=== PATIENT | female | born 1990 | race Caucasian/White ===

== ENCOUNTER 2018-07-20 17:46 | Inpatient (IN) | payer MEDICAID ==
[~2018-07-20] VITALS: Ht 144.8 cm; Wt 83.7 kg
[~2018-07-20 17:46] MED LIST: PREN1TAB17 PO
[2018-07-20 18:01] VITALS: BP 123/68; PULSE 74; RESP 18; Ht 144.8 cm; Wt 83.7 kg
[2018-07-20] MEDS ORDERED: LACTATED RINGER'S 1,000 ML IV ONE (20:30)
[2018-07-20] MEDS: LACTATED RINGER'S 1,000 ML IV SCH ×2 (21:39→23:11)
[2018-07-20] MEDS ORDERED: ACETAMINOPHEN 325 MG TAB PO PRN (23:00)
--- NOTE | 2018-07-20 23:51 | HP ---
Date/Time of Note Date/Time of Note DATE: 07/20/18 TIME: 23:49 OB - History Hx of Present Free Text/Dictation July 20, 2018 Estimated Due Date: Sep 09, 2018 : 4 Para: 3 Care: Good Care Other Concerns: 19-year-old G4, P3 with IUP at 32 weeks and 5 days presents with complaint of lower abdominal pain and some contractions. She has a history of recurrent UTI. She denies any leaking of fluid or decreased movement. Noted to have 3+ leukocyte esterase as well as 76 white BC and urine analysis consistent with UTI. Patient also noted to have episodes of recurrent variable deceleration with interval category 1 tracing. She was admitted for observation. Patient denies any comp occasions during her course. Past medical history: None Past surgical history: Status post appendectomy allergy history: NKDA Social history: Denies of smoking drinking alcohol or using any drugs Past Family/Social History * Past Medical, Surgical, Family and Obstetric Histories reviewed from chart. OB Admission Exam Vital Signs Vital Signs Vital Signs Date Temp Pulse Resp B/P (MAP) Pulse Ox O2 O2 Flow FiO2 Time Delivery Rate 07/20/18 98.4 74 18 123/68 18:01 (86) Physical Exam HEENT: WNL Lungs: Clear Abdomen: WNL Cervical Dilatation: None Membranes: Intact Heart Rate: 130's Accelerations: Accelerations Present Decelerations: Variable Decelerations Varibility: Moderate Contractions on Admission: >10 Minutes Apart Intensity: Mild Last 72 hours Lab Results CBC & BMP 07/20/18 19:01 OB Assessment/Plan Other Assessment: IUP at 32 weeks and 5 days Suprapubic pain, urine analysis consistent with UTI contractions, resolved after IV hydration. Likely due to UTI and dehydration No evidence of labor. Cervix closed and long. Cervical length 3.2 cm Symptoms improved after IV hydration Due to recurrent episodes of variables patient will be admitted for observation overnight Consider starting antibiotics. She will receive 1 dose of IV antibiotic and will continue with p.o. Expectant management Plan of care discussed with the patient with GISELA JAIN MD July 20, 2018 23:51
[2018-07-21] MEDS: CEFTRIAXONE 1 GM/50 ML (PMX) 50 ML IVPB SCH ×2 (01:08→01:10)
[2018-07-21] MEDS: SOD CHLORIDE 0.9% 1,000 ML IV SCH ×2 (01:08→09:06)
[2018-07-21] MEDS ORDERED: PRENATAL VITAMIN PO SCH (09:00)
--- NOTE | 2018-07-21 23:43 | PD.PPDC ---
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
--- NOTE | 2018-07-21 23:48 | DS ---
Date/Time of Note Date/Time of Note DATE: 07/21/18 TIME: 23:43 Obstetrical Discharge Record Final Diagnosis Final Diagnosis: not delivered Other Final Diagnosis acute cystitis IUP 32w5d polyhydramnios Complications Augmentation: No Induction: No Rupture of Membranes: No Condition on Discharge Physical Assessment Last Vitals: afebrile Voiding: Yes Bowel Movement: Yes Breast: Soft, non-tender Fundus: Other () Abdomen and Incision: CVA neg for tenderness CVL 3.2 Calf Tenderness: No Patient Condition: Stable NOREEN LIND MD July 21, 2018 23:48
== END 2018-07-21 19:35 | disposition home or self-care (01) | DRG 833 ==
LOC: OBT 17:46 → L-D 17:48 → OBT 22:40 → L-D 22:40
PROVIDERS: ADMIT Obstetrics & Gynecology; ATTEND Obstetrics & Gynecology
DX: O23.13 Infections of bladder in pregnancy, third trimester (principal); O40.3XX0 Polyhydramnios, third trimester, not applicable or unspecified; Z3A.32 32 weeks gestation of pregnancy
CPT/HCPCS: 76815; 76817; 81001; 85025; 87086; 96360; 96361; G0463; J0696; J7030; J7120

== ENCOUNTER 2018-07-22 13:08 | Outpatient (CLI) | payer MEDICAID ==
[~2018-07-22] VITALS: Ht 144.8 cm; Wt 83.9 kg
[2018-07-22 13:48] VITALS: BP 117/67; PULSE 71; RESP 18; Ht 144.8 cm; Wt 83.9 kg
--- NOTE | 2018-07-22 15:31 | PN ---
Triage Information Date/Time Reason for visit: H of labor for NST AND BPP a per provir Weeks of Gestation 32+ /Para n/a Diabetes: none Hypertention: none Objective Vital Signs Date Temp Pulse Resp B/P (MAP) Pulse Ox O2 O2 Flow FiO2 Time Delivery Rate 07/22/18 98.2 71 18 117/67 Room Air 13:48 (84) Heart Rate: 140's Contractions: None Disposition: Discharge Assessment/Plan BPP 12/15 IF CXL is WNL she can be discharged with precautions and follow up with her prov ider Questions answered JACKIE BEY M.D. July 22, 2018 15:31
--- NOTE | 2018-07-22 17:35 | TRIAGE ---
OB Triage Datetime Report Generated by CPN: 07/22/2018 17:34 Datetime: 07/22/2018 16:10 Labor Evaluation Frequency: 0 Monitor Mode: External Pattern: Normal: <= 5 Contractions in 10 Minutes Resting Tone Hickman: Relaxed Heart Rate FHR Baseline Rate: 135 Monitor Mode: External US Variability: Moderate 6-25 bpm Accelerations: 10X10 Decelerations: None Category: Category I Pain Assessment Pain Scale: 0 Pain Presence: None/Denies Pain Type: N/A Pain Goal: 3 Pain Relief Measures: Comfort Measures Datetime: 07/22/2018 15:20 Stage of : OB Triage Datetime: 07/22/2018 15:02 Labor Evaluation Frequency: 0 Monitor Mode: External Pattern: Normal: <= 5 Contractions in 10 Minutes Resting Tone Hickman: Relaxed Heart Rate FHR Baseline Rate: 130 Monitor Mode: Internal Scalp Electrode Variability: Moderate 6-25 bpm Accelerations: 10X10 Decelerations: None Category: Category I Pain Assessment Pain Scale: 0 Pain Presence: None/Denies Pain Type: N/A Pain Goal: 3 Pain Relief Measures: Comfort Measures Datetime: 07/22/2018 14:52 Stage of : OB Triage Datetime: 07/22/2018 14:47 Stage of : OB Triage Datetime: 07/22/2018 13:46 Stage of : OB Triage Maternal Assessment Level of Consciousness: Fully Conscious DTR's/Clonus: DTRs 2+; No Clonus Headache: Denies Blurred Vision: No Respiratory Effort: Unlabored; Regular Rhythm; Equal Expansion Breath Sounds, Left: Clear and Equal Breath Sounds, Right: Clear and Equal Nausea/Vomiting: Denies RUQ Epigastric Pain: Denies Lower Extremities Edema: None Degree: None Upper Extremities Edema: None Facial Edema: None Temperature Route: Oral Fall Risk Assessment History of Falling: (0) No Secondary Diagnosis: (0) No Ambulatory Aid: (0) Bedrest/Nurse Assist IV Therapy: (0) No Gait: (0) Normal/Bedrest/Immobile Mental Status: (0) Oriented to Own Ability Fall Score: 0 Fall Risk Score Definition: No Risk: No action required Monitor Mode: External Heart Rate FHR Baseline Rate: 130 Monitor Mode: External US Pain Assessment Pain Scale: 0 Datetime: 07/22/2018 13:00 Time of Arrival: 07/15/2018 13:00 EGA: 31.6 Arrived By: Ambulatory Arrived From: Home Chief Complaint: follow up from last visit due to PTL Movement: Present Contractions: Irregular Rupture of Membranes: Denies Vaginal Bleeding: None Vaginal Discharge: Denies Recent Sexual Intercouse: Denies Abdominal Trauma: Not Applicable Patient Complaints: Other Additional Patient Complaints: was admitted previously for PTL and was discharged home and was told to come back for follow up NST Time Provider Notified: 07/22/2018 13:59 Provider Notified: delshad Initial Plan: efm Datetime: 07/21/2018 19:29 Labor Evaluation Frequency: x1 Monitor Mode: External Duration (sec)2399: 80 Pattern: Normal: <= 5 Contractions in 10 Minutes Heart Rate FHR Baseline Rate: 145 Monitor Mode: External US Variability: Moderate 6-25 bpm Accelerations: 15X15 Decelerations: Variable Category: Category II Datetime: 07/21/2018 18:52 Labor Evaluation Frequency: 0 Monitor Mode: External Heart Rate FHR Baseline Rate: 145 Monitor Mode: External US FHR Baseline Changes: No Baseline Change Variability: Moderate 6-25 bpm Accelerations: 15X15 Decelerations: None Category: Category I Pain Presence: None/Denies Datetime: 07/21/2018 18:02 Labor Evaluation Frequency: 0 Monitor Mode: External Heart Rate FHR Baseline Rate: 145 Monitor Mode: External US FHR Baseline Changes: No Baseline Change Variability: Moderate 6-25 bpm Accelerations: 15X15 Decelerations: None Category: Category I Pain Presence: None/Denies Datetime: 07/21/2018 17:03 Labor Evaluation Frequency: 0 Monitor Mode: External Heart Rate FHR Baseline Rate: 140 FHR Baseline Changes: No Baseline Change Variability: Moderate 6-25 bpm Accelerations: 15X15 Decelerations: None Category: Category I Pain Presence: None/Denies Datetime: 07/21/2018 16:00 Labor Evaluation Frequency: 0 Monitor Mode: External Heart Rate FHR Baseline Rate: 140 Monitor Mode: External US FHR Baseline Changes: No Baseline Change Variability: Moderate 6-25 bpm Accelerations: 15X15 Decelerations: None Category: Category I Pain Presence: None/Denies Pain Type: N/A Datetime: 07/21/2018 15:00 Labor Evaluation Frequency: 0 Monitor Mode: External Heart Rate FHR Baseline Rate: 145 Monitor Mode: External US FHR Baseline Changes: No Baseline Change Variability: Moderate 6-25 bpm Accelerations: 15X15 Decelerations: None Category: Category I Datetime: 07/21/2018 14:00 Labor Evaluation Frequency: 0 Monitor Mode: External Heart Rate FHR Baseline Rate: 130 Monitor Mode: External US FHR Baseline Changes: No Baseline Change Variability: Moderate 6-25 bpm Accelerations: 15X15 Decelerations: None Category: Category I Datetime: 07/21/2018 13:00 Labor Evaluation Frequency: 0 Monitor Mode: External Heart Rate FHR Baseline Rate: 140 Monitor Mode: External US FHR Baseline Changes: No Baseline Change Variability: Moderate 6-25 bpm Accelerations: 15X15 Decelerations: None Category: Category I Datetime: 07/21/2018 12:00 Monitor Mode: External Heart Rate FHR Baseline Rate: 145 Monitor Mode: External US FHR Baseline Changes: No Baseline Change Variability: Moderate 6-25 bpm Accelerations: 15X15 Decelerations: None Category: Category I Datetime: 07/21/2018 11:00 Labor Evaluation Frequency: 0 Monitor Mode: External Heart Rate FHR Baseline Rate: 145 Monitor Mode: External US FHR Baseline Changes: No Baseline Change Variability: Moderate 6-25 bpm Accelerations: 15X15 Decelerations: None Category: Category I Datetime: 07/21/2018 10:00 Labor Evaluation Frequency: 0 Monitor Mode: External Heart Rate FHR Baseline Rate: 140 Monitor Mode: External US FHR Baseline Changes: No Baseline Change Variability: Moderate 6-25 bpm Accelerations: 15X15 Decelerations: None Category: Category I Datetime: 07/21/2018 09:00 Labor Evaluation Frequency: irregular X2 Monitor Mode: External Duration (sec)2399: 40-50 Quality: Mild Pattern: Normal: <= 5 Contractions in 10 Minutes Resting Tone Hickman: Relaxed Heart Rate FHR Baseline Rate: 135 Monitor Mode: External US FHR Baseline Changes: No Baseline Change Variability: Moderate 6-25 bpm Accelerations: 15X15 Decelerations: None Category: Category I Datetime: 07/21/2018 08:00 Assessment Type: Admission Assessment Maternal Assessment Level of Consciousness: Fully Conscious DTR's/Clonus: DTRs 2+; No Clonus Headache: Denies Blurred Vision: No Respiratory Effort: Unlabored; Regular Rhythm; Equal Expansion Breath Sounds, Left: Clear and Equal Breath Sounds, Right: Clear and Equal Nausea/Vomiting: Denies RUQ Epigastric Pain: Denies Lower Extremities Edema: None Upper Extremities Edema: None Facial Edema: None Fall Risk Assessment History of Falling: (0) No Secondary Diagnosis: (0) No Ambulatory Aid: (0) Bedrest/Nurse Assist IV Therapy: (20) Yes Gait: (0) Normal/Bedrest/Immobile Mental Status: (0) Oriented to Own Ability Fall Score: 20 Fall Risk Score Definition: No Risk: No action required Labor Evaluation Frequency: IRREGULAR X3 Monitor Mode: External Duration (sec)2399: 50-60 Quality: Mild Pattern: Normal: <= 5 Contractions in 10 Minutes Resting Tone Hickman: Relaxed Contraction Comments: PT STATES SHE DOES NOT FEEL UC PAIN Heart Rate FHR Baseline Rate: 145 Monitor Mode: External US FHR Baseline Changes: No Baseline Change Variability: Moderate 6-25 bpm Accelerations: 10X10 Decelerations: None Category: Category I Comments: PT STATES SHE FEELS POSITIVE MOVEMENT. Datetime: 07/21/2018 07:20 Stage of : Antepartum Datetime: 07/21/2018 07:00 Stage of : Antepartum Labor Evaluation Frequency: Irregular Monitor Mode: External Duration (sec)2399: 40-70 Quality: Mild Pattern: Normal: <= 5 Contractions in 10 Minutes Resting Tone Hickman: Relaxed Heart Rate FHR Baseline Rate: 150 Monitor Mode: External US Variability: Moderate 6-25 bpm Accelerations: 15X15 Decelerations: None Datetime: 07/21/2018 06:43 Stage of : Antepartum Pain Assessment Pain Scale: 0 Pain Presence: None/Denies Pain Type: N/A Datetime: 07/21/2018 06:00 Stage of : Antepartum Labor Evaluation Frequency: Irregular Monitor Mode: External Duration (sec)2399: 40-60 Quality: Mild Pattern: Normal: <= 5 Contractions in 10 Minutes Resting Tone Hickman: Relaxed Heart Rate FHR Baseline Rate: 140 Monitor Mode: External US FHR Baseline Changes: No Baseline Change Variability: Moderate 6-25 bpm Accelerations: 15X15 Decelerations: None Datetime: 07/21/2018 05:21 Stage of : Antepartum Datetime: 07/21/2018 05:00 Stage of : Antepartum Labor Evaluation Frequency: Irregular Monitor Mode: External Duration (sec)2399: 40-70 Quality: Mild Pattern: Normal: <= 5 Contractions in 10 Minutes Resting Tone Hickman: Relaxed Heart Rate FHR Baseline Rate: 140 Monitor Mode: External US Variability: Moderate 6-25 bpm Accelerations: 15X15 Decelerations: None Datetime: 07/21/2018 04:18 Stage of : Antepartum Assessment Type: Admission Assessment Vaginal Bleeding: None Maternal Assessment Level of Consciousness: Fully Conscious DTR's/Clonus: DTRs 2+; No Clonus Headache: Denies Blurred Vision: No Respiratory Effort: Unlabored; Regular Rhythm; Equal Expansion Breath Sounds, Left: Clear and Equal Breath Sounds, Right: Clear and Equal RUQ Epigastric Pain: Denies Lower Extremities Edema: Bilateral Lower Extremities Degree: 1+ (Annotations: feet only) Upper Extremities Edema: None Degree: None Facial Edema: None Temperature Route: Oral Fall Risk Assessment History of Falling: (0) No Secondary Diagnosis: (0) No Ambulatory Aid: (0) Bedrest/Nurse Assist IV Therapy: (0) No Gait: (0) Normal/Bedrest/Immobile Mental Status: (0) Oriented to Own Ability Fall Score: 0 Fall Risk Score Definition: No Risk: No action required Pain Assessment Pain Scale: 0 Pain Presence: None/Denies Pain Type: N/A Membrane Status: Intact Datetime: 07/21/2018 04:00 Stage of : Antepartum Labor Evaluation Frequency: Irregular Monitor Mode: External Duration (sec)2399: 40-50 Quality: Mild Pattern: Normal: <= 5 Contractions in 10 Minutes Resting Tone Hickman: Relaxed Heart Rate FHR Baseline Rate: 135 Monitor Mode: External US FHR Baseline Changes: No Baseline Change Variability: Moderate 6-25 bpm Accelerations: 15X15 Decelerations: None Datetime: 07/21/2018 03:00 Stage of : Antepartum Labor Evaluation Frequency: 2.5-9 Monitor Mode: External Duration (sec)2399: 40-100 Quality: Mild Pattern: Normal: <= 5 Contractions in 10 Minutes Resting Tone Hickman: Relaxed Heart Rate FHR Baseline Rate: 135 Monitor Mode: External US FHR Baseline Changes: No Baseline Change Variability: Moderate 6-25 bpm Accelerations: 15X15 Decelerations: Variable Category: Category II Datetime: 07/21/2018 02:57 Stage of : Antepartum Datetime: 07/21/2018 02:00 Stage of : Antepartum Labor Evaluation Frequency: 2-7 Monitor Mode: External Duration (sec)2399: 40-80 Quality: Mild Pattern: Normal: <= 5 Contractions in 10 Minutes Resting Tone Hickman: Relaxed Heart Rate FHR Baseline Rate: 135 Monitor Mode: External US FHR Baseline Changes: No Baseline Change Variability: Moderate 6-25 bpm Accelerations: 15X15 Decelerations: None Category: Category I Datetime: 07/21/2018 01:10 Stage of : Antepartum Datetime: 07/21/2018 01:00 Stage of : Antepartum Labor Evaluation Frequency: Irregular Monitor Mode: External Duration (sec)2399: 40-70 Quality: Mild Pattern: Normal: <= 5 Contractions in 10 Minutes Resting Tone Hickman: Relaxed Heart Rate FHR Baseline Rate: 135 Monitor Mode: External US FHR Baseline Changes: No Baseline Change Variability: Moderate 6-25 bpm Accelerations: 15X15 Decelerations: None Category: Category I Datetime: 07/21/2018 00:00 Stage of : Antepartum Labor Evaluation Frequency: 2.5-6 Monitor Mode: External Duration (sec)2399: 40-80 Quality: Mild Pattern: Normal: <= 5 Contractions in 10 Minutes Resting Tone Hickman: Relaxed Heart Rate FHR Baseline Rate: 135 Monitor Mode: External US Variability: Moderate 6-25 bpm Accelerations: 15X15 Decelerations: None Category: Category I Datetime: 07/20/2018 23:43 Stage of : Antepartum Temperature Route: Oral Pain Assessment Pain Scale: 0 Pain Presence: None/Denies Pain Type: N/A Pain Assessment Comments: Pt denies any pain or cramping at this time Datetime: 07/20/2018 23:41 Stage of : Antepartum Datetime: 07/20/2018 23:30 Stage of : Antepartum Datetime: 07/20/2018 23:00 Labor Evaluation Frequency: 3-4 Monitor Mode: External Duration (sec)2399: 60-80 Quality: Mild Pattern: Normal: <= 5 Contractions in 10 Minutes Resting Tone Hickman: Relaxed Heart Rate FHR Baseline Rate: 140 Monitor Mode: External US Variability: Moderate 6-25 bpm Accelerations: 15X15 Decelerations: None Category: Category I Datetime: 07/20/2018 22:17 Stage of : OB Triage Labor Evaluation Frequency: 2-10 Monitor Mode: External Duration (sec)2399: 40-60 Quality: Mild Pattern: Normal: <= 5 Contractions in 10 Minutes Resting Tone Hickman: Relaxed Heart Rate FHR Baseline Rate: 135 Monitor Mode: External US Variability: Moderate 6-25 bpm Accelerations: 15X15 Decelerations: None Category: Category I Datetime: 07/20/2018 21:30 Vaginal Exam Dilatation (cms): 0.0 Effacement (%): 0 Station: -3 Exam By: bP FONTAINEVIV Cervix, Consistency: Firm Cervix, Position: Posterior Datetime: 07/20/2018 21:16 Stage of : OB Triage Labor Evaluation Frequency: 2-4 Monitor Mode: External Duration (sec)2399: 40-80 Quality: Mild Pattern: Normal: <= 5 Contractions in 10 Minutes Resting Tone Hickman: Relaxed Heart Rate FHR Baseline Rate: 145 Monitor Mode: External US Variability: Moderate 6-25 bpm Accelerations: 15X15 Decelerations: None Category: Category I Datetime: 07/20/2018 20:30 Stage of : OB Triage Labor Evaluation Frequency: 2-3 Monitor Mode: External Duration (sec)2399: 40-70 Quality: Mild Pattern: Normal: <= 5 Contractions in 10 Minutes Resting Tone Hickman: Relaxed Heart Rate FHR Baseline Rate: 145 Monitor Mode: External US Variability: Moderate 6-25 bpm Accelerations: 15X15 Decelerations: None Category: Category I Datetime: 07/20/2018 19:30 Stage of : OB Triage Labor Evaluation Frequency: 2-4 Monitor Mode: External Duration (sec)2399: 40-60 Quality: Mild Pattern: Normal: <= 5 Contractions in 10 Minutes Resting Tone Hickman: Relaxed Heart Rate FHR Baseline Rate: 145 Monitor Mode: External US Variability: Moderate 6-25 bpm Accelerations: 15X15 Decelerations: None Category: Category I Datetime: 07/20/2018 18:30 Stage of : OB Triage Datetime: 07/20/2018 17:52 Stage of : OB Triage Assessment Type: Triage Maternal Assessment Level of Consciousness: Fully Conscious DTR's/Clonus: DTRs 2+; No Clonus Headache: Denies Blurred Vision: No Respiratory Effort: Unlabored; Regular Rhythm; Equal Expansion Breath Sounds, Left: Clear and Equal Breath Sounds, Right: Clear and Equal Nausea/Vomiting: Denies RUQ Epigastric Pain: Denies Facial Edema: None Temperature Route: Axillary Fall Risk Assessment History of Falling: (0) No Secondary Diagnosis: (0) No Ambulatory Aid: (0) Bedrest/Nurse Assist IV Therapy: (0) No Gait: (0) Normal/Bedrest/Immobile Mental Status: (0) Oriented to Own Ability Fall Score: 0 Fall Risk Score Definition: No Risk: No action required Labor Evaluation Frequency: 0 Monitor Mode: External Pattern: Normal: <= 5 Contractions in 10 Minutes Resting Tone Hickman: Relaxed Heart Rate FHR Baseline Rate: 145 Monitor Mode: External US Variability: Moderate 6-25 bpm Accelerations: 10X10 Decelerations: None Category: Category I Pain Assessment Pain Scale: 8 Pain Presence: Constant Pain Type: Cramping Pain Location: Perineum Pain Goal: 3 Pain Relief Measures: Comfort Measures Datetime: 07/20/2018 17:51 EGA: 32.4 Arrived By: Ambulatory Arrived From: Home Datetime: 07/20/2018 17:50 Time of Arrival: 07/20/2018 17:30 Arrived By: Ambulatory Arrived From: Home Chief Complaint: C/O CONSTANT PERINEAL PAIN THAT STARTED AT APPROX 4PM, DENIES BLEEDING OR LEAKING Movement: Present Contractions: Denies/Absent Rupture of Membranes: Denies Vaginal Bleeding: None Vaginal Discharge: Denies Recent Sexual Intercouse: Denies Abdominal Trauma: Not Applicable Patient Complaints: Cramping Initial Plan: MONITOR
== END 2018-07-22 16:20 | disposition home or self-care (01) ==
LOC: OBT 13:08 → L-D 13:09 → OBT 16:20
PROVIDERS: ATTEND Obstetrics & Gynecology
DX: O60.03 Preterm labor without delivery, third trimester (principal); Z3A.32 32 weeks gestation of pregnancy
CPT/HCPCS: 76817; 76818; Z7500; G0463

== ENCOUNTER 2018-08-23 09:37 | Inpatient (IN) | payer MEDICAID ==
[~2018-08-23] VITALS: Ht 144.8 cm; Wt 83.9 kg
--- NOTE | 2018-08-23 10:04 | TRIAGE ---
OB Triage Datetime Report Generated by CPN: 08/23/2018 10:04 Datetime: 08/23/2018 09:43 Vaginal Exam Dilatation (cms): 4.0 Effacement (%): 80 Station: -2 Vaginal Bleeding: None Cervix, Consistency: Soft Cervix, Position: Midposition Presentation 'A': Cephalic Datetime: 08/23/2018 09:34 Time of Arrival: 08/23/2018 09:34 EGA: 37.3 Arrived By: Ambulatory Arrived From: Home Chief Complaint: PT CAME IN C/O UC'S SINCE 0100 Movement: Present Contractions: Regular Time Contractions Began: 08/23/2018 01:00 Contractions: 5 M Rupture of Membranes: Denies Vaginal Discharge: Denies Recent Sexual Intercouse: Denies Abdominal Trauma: Not Applicable Additional Patient Complaints: NONE Time Provider Notified: 08/23/2018 09:40 Provider Notified: HADADIAN Initial Plan: MONITOR AND VE Datetime: 07/22/2018 13:46 Fall Risk Assessment Fall Score: 0 Fall Risk Score Definition: No Risk: No action required Datetime: 07/22/2018 13:00 EGA: 31.6 Datetime: 07/21/2018 08:00 Fall Risk Assessment Fall Score: 20 Fall Risk Score Definition: No Risk: No action required Datetime: 07/21/2018 04:18 Fall Risk Assessment Fall Score: 0 Fall Risk Score Definition: No Risk: No action required Datetime: 07/20/2018 17:52 Fall Risk Assessment Fall Score: 0 Fall Risk Score Definition: No Risk: No action required Datetime: 07/20/2018 17:51 EGA: 32.4
[2018-08-23 10:27] VITALS: Ht 144.8 cm; Wt 83.9 kg
[2018-08-23] MEDS ORDERED: LIDOCAINE 1% (MPF) 30 ML INJ INJ PRN (10:30)
[2018-08-23] MEDS ORDERED: OXYTOCIN 30 UNITS/LR 500 ML IV SCH ×2 (10:30)
[2018-08-23] MEDS ORDERED: OXYTOCIN 30 UNITS/LR 500 ML IV PRN ×2 (10:30→23:30)
[2018-08-23] MEDS ORDERED: BUTORPHANOL 2 MG INJ IV PRN (10:30)
[2018-08-23] MEDS ORDERED: MISOPROSTOL 200 MCG TAB PR PRN ×2 (10:30→23:30)
[2018-08-23] MEDS ORDERED: CARBOPROST 250 MCG INJ IM PRN ×2 (10:30→23:30)
[2018-08-23] MEDS ORDERED: IBUPROFEN 600 MG TAB PO PRN (10:30)
[2018-08-23] MEDS ORDERED: METHYLERGONOVINE 0.2 MG INJ IM PRN ×2 (10:30→23:30)
[2018-08-23] MEDS: LACTATED RINGER'S 1,000 ML IV SCH ×3 (11:21→17:21)
--- NOTE | 2018-08-23 15:23 | PREAC ---
Date/Time of Note Date/Time of Note DATE: 08/23/18 TIME: 15:21 Anesthesia Eval and Record Evaluation Time Pre-Procedure Interview DATE: 08/23/18 TIME: 15:21 Age 27 Sex female NPO: 8 hrs Preoperative diagnosis intrauterine Planned procedure labor epidural Past Medical History Past Medical History: Includes GI: Obesity : : (4), Para: (3), Gestational age: (37+) Surgery & Anesthesia Issues No known issue Meds Anticoagulation: No Beta Alfonso within 24 hr: No Reason Beta Alfonso not given: Pt. not on B-Alfonso Reported Medications Vit-Iron Fumarate-FA ( Tablet) 1 Each Tablet, 1 EACH PO DAILY 05/17/13 Current Medications Lactated Ringer's 1,000 ml @ 125 mls/hr Q8H IV Last administered on 08/23/18at 15:10; Admin Dose 125 MLS/HR; Start 08/23/18 at 10:22 Butorphanol Tartrate (Stadol) 2 mg Q2H PRN IV .PAIN SCALE 6-10; Start 08/23/18 at 10:30 Lidocaine (Xylocaine 1% (Mpf)) 30 ml ONCE PRN INJ .EPISIOTOMY; Start 08/23/18 at 10:30 Oxytocin/Lactated Ringer's 500 ml @ 500 mls/hr ONCE POST IV ; Start 08/23/18 at 10:30 Oxytocin/Lactated Ringer's 500 ml @ 125 mls/hr POST IV ; Start 08/23/18 at 10:30 Ibuprofen (Motrin) 600 mg ONCE PRN PO .PAIN 1-5; Start 08/23/18 at 10:30 Oxytocin/Lactated Ringer's 500 ml @ 0 mls/hr ONCE PRN IV .VAGINAL BLEEDING; Start 08/23/18 at 10:30 Methylergonovine Maleate (Methergine) 0.2 mg ONCE PRN IM .VAGINAL BLEEDING; Start 08/23/18 at 10:30 Carboprost Tromethamine (Hemabate) 250 mcg ONCE PRN IM .VAGINAL BLEEDING; Start 08/23/18 at 10:30 Misoprostol (Cytotec) 1,000 mcg ONCE PRN AR .VAGINAL BLEEDING; Start 08/23/18 at 10:30 Meds reviewed: Yes Allergies Coded Allergies: No Known Allergy (Unverified , 07/20/18) Allergies Reviewed: Yes Labs/Studies Labs Reviewed: Reviewed by anesthesiologist Result Diagram: 08/23/18 1105 Laboratory Tests 08/23/18 11:05 Blood Bank Test 08/23/18 11:05 Antibody Screen NEGATIVE Blood Type O POSITIVE Rh Immune Globulin Candidate NO test: N/A Pre-procedure Exam Airway: Adequate mouth opening, Adequate thyromental dist Mallampati: Mallampati II Teeth: Normal Lung: Normal Heart: Normal ASA Physical Status ASA physical status: 2 Emergency: None Planned Anesthetic Neuraxial: Epidural Planned Pain Management Epidural Pre-operative Attestations Prior to commencing anesthesia and surgery, the patient was re-evaluated, there was verification of: *The patient's identity *The results of appropriate recent lab work and preoperative vital signs *The above evaluation not changing prior to induction *Anesthetic plan, risk benefits, alternative and complications discussed with patient/family; questions answered; patient/family understands, accepts and wishes to proceed. SOBIA DECKER MD Aug 23, 2018 15:23
[2018-08-23] MEDS ORDERED: NALOXONE (0.4 MG/ML) INJ IV PRN (15:30)
[2018-08-23] MEDS ORDERED: FENTAnyl 2MCG/ML-ROPIV 0.2% 100 ML BAG EPI SCH (15:30)
[2018-08-23] MEDS ORDERED: DIPHENHYDRAMINE 50 MG INJ IV PRN ×2 (15:30→23:30)
[2018-08-23] MEDS ORDERED: ONDANSETRON 4 MG INJ IV PRN ×2 (15:30→23:30)
--- NOTE | 2018-08-23 16:01 | PAC ---
Date/Time of Note Date/Time of Note DATE: 08/23/18 TIME: 16:00 Post-Anesthesia Notes Post-Anesthesia Note Activity: WNL Respiratory function: WNL Cardiovascular function: WNL Mental status: Baseline Pain reasonably controlled: Yes Hydration appropriate: Yes Nausea/Vomiting absent: Yes Comments BP: 121/62 HR: 78 RR: 16 T: 98 SaO2: 99% SOBIA DECKER MD Aug 23, 2018 16:01
[2018-08-23 21:30] VITALS: BP 125/69; PULSE 71; RESP 19
[2018-08-23 22:30] VITALS: BP 124/72; PULSE 75; RESP 18
--- NOTE | 2018-08-23 22:59 | HP ---
Date/Time of Note Date/Time of Note DATE: 08/23/18 TIME: 22:56 OB - History Hx of Present Free Text/Dictation 27 years old 4 para 3-0-0-3 with single intrauterine at 37 weeks and 3 days with a ANDRES of 09/10/2018 complaining of uterine contractions. She states good movement. She denies nausea, vomiting, shortness of breath, chest pain, headache, visual changes, vaginal bleeding or LOF. Chief Complaint: Uterine contractions Estimated Due Date: Sep 10, 2018 : 4 Para: 3 Spontaneous : 0 Therapeutic : 0 Care: Good Care Ultrasounds: Normal mid trimester US Obstetrical Complications: None Medical Complications: Musculoskeletal Past Family/Social History * Past Medical, Surgical, Family and Obstetric Histories reviewed from chart. Blood Type: O+ Rubella: immune RPR/VDRL: Negative GBS Status: Negative HBsAG: Negative OB Admission Exam Vital Signs Vital Signs Blood pressure 118/67, pulse rate 66/minutes, respiratory rate 16/minutes, temperature 98.6 Physical Exam HEENT: WNL Heart: Rhythm Normal Lungs: Clear Abdomen: WNL Extremities: Normal Reflexes: Normal Cervical Dilatation: 4cm Effacement: 75% Station: -3 Membranes: Intact Heart Rate: 130's Accelerations: Accelerations Present Decelerations: No Decelerations Varibility: Moderate Contractions on Admission: < 5 Minutes Apart Intensity: Moderate Last 72 hours Lab Results CBC & BMP 08/23/18 11:05 OB Assessment/Plan Other plan: 27 years old 4 para 3-0-0-3 with single intrauterine at 37 weeks and 3 days in labor -FHR: No sign of metabolic acidosis- Category I -Continuous EFM, toco -CBC, blood type and screen -Analgesia options with R/B/A discussed in detail with patient -Epidural per patient request -Please see the orders -O+/Rubella: Immune -GBS: Negative Admission, procedures, expectations, risks and possible complications have been discussed in detail with the patient. Risk of vaginal delivery including but not limited to bleeding, infection, cervical laceration, placental retention, injury to fetus, blood transfusion, blood transfusion related infection, risk of anesthesia, adhesion, cervical laceration, episiotomy/laceration, possible delivery with risk of bleeding, infection, injury to other organs (bowel, bladder, ureter, vessels, nerves), injury to fetus, blood transfusion, blood transfusion related infection, risk of anesthesia, scar and hernia formation, needs for future , removal of uterus or any other indicated surgery discussed with the patient. She expressed understanding and repeats the risks. All of her questions were answered. She signed the informed consent. PHYSICIAN'S VERIFICATION OF INFORMED CONSENT The patient was counseled regarding the procedure, its indications, risks, potential complications and alternatives and any questions were answered. Consent was obtained. PLANNED PROCEDURE/TREATMENT: Vaginal delivery, episiotomy, repair of laceration possible delivery STANLEY TONG Aug 23, 2018 22:59
--- NOTE | 2018-08-23 23:03 | LDN ---
Date/Time of Note Date/Time of Note DATE: 08/23/18 TIME: 23:00 Delivery Summary 27 years old 4 para 3-0-0-3 with single intrauterine at 37 weeks and 3 days delivered a viable male over first-degree laceration. Nose and mouth suction. There was nuchal cord x1 which reduced. Rest of body delivered. Cord clamped and cut after stopping pulsation. Baby given to the nurse. Placenta delivered spontaneously with three-vessel cord. Laceration repaired with 3-0 chromic with SH needle. Patient tolerated procedure well. Time of delivery 20:30 Weight 3195 g - 7pound and 1 ounces Height 19 inches 8 at 1 minutes and 9 at 5 minutes EBL 150 mL Weeks of Gestation 37 weeks and 3 days Placenta Delivered: Spontaneously Episiotomy: No Anesthesia type: Epidural Estimated blood loss: 150 Sponge & Needle done & correct: Yes All needle counts correct: Yes Any foreign bodies felt in the: No Infant Delivery Information Sex Sex: male Apgars 1 Minute: 8 5 Minute: 9 10 Minute: 10 Suctioning Nose & mouth suctioned at eloise: Yes Umbilical Cord Umbilical cord with: 3 Vessels Cord presentations: nuchal cord Nuchal cord present X: 1 Cord Blood was obtained: Yes Mother & Baby Disposition Disposition Mom & Baby to Maternity; Good: Yes STANLEY TONG Aug 23, 2018 23:03
[2018-08-23] MEDS ORDERED: DEXTROSE 5%-LR 1,000 ML IV SCH (23:06)
[2018-08-23] MEDS ORDERED: LANOLIN HPA 1 PKT TOP PRN (23:30)
[2018-08-23] MEDS ORDERED: WITCH HAZEL/GLYCERIN PAD PR PRN (23:30)
[2018-08-23] MEDS ORDERED: SENNA/DOCUSATE NA (8.6MG/50MG) TAB PO PRN (23:30)
[2018-08-23] MEDS ORDERED: BENZOCAINE 20% 56 ML SPRAY TOP PRN (23:30)
[2018-08-23] MEDS ORDERED: ACETAMINOPHEN 325 MG TAB PO PRN (23:30)
[2018-08-23] MEDS ORDERED: OXYCODONE/ASPIRIN (4.88/325) TAB PO PRN (23:30)
[2018-08-23] MEDS ORDERED: MAGNESIUM HYDROXIDE 30ML CUP PO PRN (23:30)
[2018-08-23] MEDS ORDERED: ZOLPIDEM 5 MG TAB PO PRN (23:30)
[2018-08-23] MEDS ORDERED: DIBUCAINE 1% 30 GM OINT TOP PRN (23:30)
[2018-08-24] VITALS: BP 126/68; PULSE 78; RESP 19
[2018-08-24] MEDS: IBUPROFEN 600 MG TAB PO SCH ×5 (00:25→23:24)
[2018-08-24] MEDS: LACTATED RINGER'S 1,000 ML IV* SCH ×2 (01:20→15:06)
[2018-08-24 02:31] VITALS: BP 124/72; PULSE 75; RESP 18
[2018-08-24 04:00] VITALS: BP 122/75; PULSE 73; RESP 18
[2018-08-24 08:00] VITALS: BP 118/57; PULSE 74; RESP 18
--- NOTE | 2018-08-24 15:53 | PN ---
Date/Time of Note Date/Time of Note DATE: 08/24/18 TIME: 15:51 OB Subjective Subjective Subjective PPD# 1 Patient is doing well. She denies nausea, vomiting, shortness of breath, chest pain, headache. She has been ambulating without difficulty, tolerating regular diet. Pain is well controlled on current medications OB Objective Objective Objective VS - Last 72 Hours, by Label Date Temp Pulse Resp B/P (MAP) Pulse Ox O2 O2 Flow FiO2 Time Delivery Rate 08/24/18 98.6 74 18 118/57 Room Air 08:00 (77) 08/24/18 98.4 73 18 122/75 Room Air 04:00 (91) 08/24/18 98.6 78 19 126/68 Room Air 00:00 (87) 08/23/18 98.7 75 18 124/72 Room Air 22:30 (89) 08/23/18 98.6 71 19 125/69 Room Air 21:30 (87) General: AAO X 3, comfortable, NAD, appropriate mood and affect. ABD: +BS. Soft, non-tender. Uterus 2 cm below umbilicus Flank: No CVA tenderness (B/L) LE: Mild edema. No clubbing, cyanosis, thigh or calf tenderness (B/L). Homans 'sign is negative Laboratory Tests Test 08/23/18 11:05 08/24/18 07:16 08/24/18 08:38 White Blood Count 9.5 10^3/ul 9.7 10^3/ul Red Blood Count 4.19 10^6/ul 3.59 10^6/ul Hemoglobin 12.4 g/dl 10.6 g/dl Hematocrit 38.0 % 32.1 % Mean Corpuscular Volume 90.7 fl 89.4 fl Mean Corpuscular 29.6 pg 29.5 pg Hemoglobin Mean Corpuscular 32.6 g/dl 33.0 g/dl Hemoglobin Concent Red Cell Distribution 13.3 % 13.3 % Width Platelet Count 272 10^3/UL 211 10^3/UL Mean Platelet Volume 11.5 fl 10.9 fl Immature Granulocytes % 0.400 % 0.500 % Neutrophils % 70.3 % 77.6 % Lymphocytes % 22.9 % 14.7 % Monocytes % 5.7 % 6.5 % Eosinophils % 0.4 % 0.4 % Basophils % 0.3 % 0.3 % Nucleated Red Blood Cells 0.0 /100WBC 0.0 /100WBC % Immature Granulocytes # 0.040 10^3/ul 0.050 10^3/ul Neutrophils # 6.6 10^3/ul 7.6 10^3/ul Lymphocytes # 2.2 10^3/ul 1.4 10^3/ul Monocytes # 0.5 10^3/ul 0.6 10^3/ul Eosinophils # 0.0 10^3/ul 0.0 10^3/ul Basophils # 0.0 10^3/ul 0.0 10^3/ul Nucleated Red Blood Cells 0.0 10^3/ul 0.0 10^3/ul # Prothrombin Time 12.0 Sec Prothrombin Time Ratio 0.9 INR International 0.88 Normalized Ratio Activated 27.1 Sec Partial Thromboplast Time Rapid Plasma Reagin NONREACTIVE Hepatitis B Surface NEGATIVE Antigen Lab Scanned Report REFERENCE LAB [id number] OB Assessment/Plan Other plan: 27 years old -0-0-4 s/p normal vaginal delivery at 37 weeks and 3 days. PPD#1 - AF, VSS - Baby is doing well, at bed side. She is bonding well - Contraception methods with R/B/A/FR discussed - Continue care - Discharge home tomorrow - Rx and instruction given - Follow up in 2 and 6 weeks at clinic STANLEY TONG Aug 24, 2018 15:53
--- NOTE | 2018-08-24 15:54 | DS ---
Date/Time of Note Date/Time of Note DATE: 08/24/18 TIME: 15:53 Obstetrical Discharge Record Final Diagnosis Final Diagnosis: Term delivered Other Final Diagnosis 27 years old -0-0-4 s/p normal vaginal delivery at 37 weeks and 3 days. PPD#1. course was unremarkable. She is ambulating and tolerating regular diet. She is voiding without difficulty. Pain is controlled on current medication - AF, VSS - Baby is doing well, at bed side. She is bonding well - Contraception methods with R/B/A/FR discussed - Continue care - Discharge home tomorrow - Rx and instruction given - Follow up in 2 and 6 weeks at clinic Vaginal Delivery Obstetrical Delivery: Spontaneous Condition on Discharge Physical Assessment Last Vitals: Vital Signs Date Temp Pulse Resp B/P (MAP) Pulse Ox O2 O2 Flow FiO2 Time Delivery Rate 08/24/18 98.6 74 18 118/57 Room Air 08:00 (77) Voiding: Yes Bowel Movement: Yes Breast: Soft, non-tender Fundus: Firm Calf Tenderness: No Patient Condition: Stable STANLEY TONG Aug 24, 2018 15:54
[2018-08-24 16:42] VITALS: BP 135/76; PULSE 74; RESP 18
[2018-08-24 19:40] VITALS: BP 132/68; PULSE 78; RESP 19
[2018-08-25 04:00] VITALS: BP 129/78; PULSE 66; RESP 20
[2018-08-25] MEDS: IBUPROFEN 600 MG TAB PO SCH ×2 (05:32→12:00)
[2018-08-25 08:00] VITALS: BP 126/78; PULSE 67; RESP 18
[2018-08-25] MEDS ORDERED: DIPHTH/TET/ACEL PERTUSS (ADULT) 0.5 ML VIAL IM* ONE (09:00)
[2018-08-25] MEDS ORDERED: MEASLES,MUMPS,RUBELLA VACCINE INJ SC* ONE (09:00)
--- NOTE | 2018-08-26 16:05 | DELSUM ---
Delivery Summary A-C Datetime Report Generated by CPN: 08/26/2018 16:04 DELIVERY PERSONNEL [employer] Department Chair: Knight, Ivanna MATERNAL INFORMATION Delivery Anesthesia: Epidural Medications in Delivery: PITOCIN Delivery QBL (ml): 150 Placenta Cultured: No Maternal Complications: None LABOR SUMMARY EDC: 09/10/2018 00:00 No. Babies in Womb: 1 Attempted: No Labor Anesthesia: Epidural LABOR INFORMATION Oxytocin: N/A Group B Beta Strep: Negative Steroids Given: None Reason Steroids Not Administered: Not Applicable MEMBRANES Membranes Rupture Method: Spontaneous Rupture of Membranes: 08/23/2018 19:37 Length of Rupture (hr): 0.88 Amniotic Fluid Color: Clear Amniotic Fluid Amount: Moderate Amniotic Fluid Odor: None STAGES OF LABOR Stage 3 hr: 0 Stage 3 min: 1 VAGINAL DELIVERY Episiotomy: None Laceration Extension: First Degree Laceration Type: Perineal Laceration Repair: Yes Initial Vag Sponge Count: 10 Final Vag Sponge Count: 10 Initial Vag Sharps Count: 1+1 Final Vag Sharps Count: 2 Sponge Count Correct: Yes; Vaginal Sweep Performed Sharps Count Correct: Yes BABY A INFORMATION Delivery Date/Time: 08/23/2018 20:30 Method of Delivery: Vaginal Born in Route : No : N/A Forceps: N/A Vacuum Extraction: N/A Shoulder Dystocia : N/A SHOULDER DYSTOCIA BABY A Infant Delivery Date/Time: 08/23/2018 20:30 PRESENTATION/POSITION BABY A Presentation: Cephalic Cephalic Presentation: Vertex Vertex Position: Left Occipital Posterior Breech Presentation: N/A PLACENTA INFORMATION BABY A Placenta Delivery Time : 08/23/2018 20:31 Placenta Method of Delivery: Spontaneous Placenta Status: Delivered SCORES BABY A Heart Rate 1 min: >100 bpm Resp Effort 1 min: Good Cry Reflex Irritability 1 min: Cough/Sneeze/Pulls Away Muscle Tone 1 min: Active Motion Color 1 min: Blue/Pale Resuscitation Effort 1 min: Tactile Stimulation SCORE 1 MIN: 8 Heart Rate 5 min: >100 bpm Resp Effort 5 min: Good Cry Reflex Irritability 5 min: Cough/Sneeze/Pulls Away Muscle Tone 5 min: Active Motion Color 5 min: Body Mosby, Extremit Blue Resuscitation Effort 5 min: Tactile Stimulation SCORE 5 MIN: 9 INFORMATION BABY A Gestational Age at Delivery: 37.3 Gestational Status: Early Term- 37- 38.6 Weeks Infant Outcome : Liveborn Infant Condition : Stable Sex: Male IDENTIFICATION/MEDS BABY A ID Band Number: [id number] ID Band Location: Right Leg; Left Arm Sensor Applied: Yes Sensor Number: [id number] Sensor Location : Cord Clamp Vitamin K Given : Not Given Erythromycin Given: Not Given WEIGHT/LENGTH BABY A Infant Birthweight (gm): 3195 Infant Weight (lb): 7 Infant Weight (oz): 1 Infant Length (in): 19.00 Length (cm): 48.26 CORD INFORMATION BABY A No. Cord Vessels: 3 Nuchal Cord : Around Neck x1, Loose Cord Blood Taken: Yes Infant Suction: Mouth; Nose ASSESSMENT BABY A Infant Complications: Multiple Variable Decels Physical Findings at Delivery: Molding of the Head; Within Normal Limits Physical Findings- Other: VOID X1 Infant Respirations: Appears Normal Associate Merchant/ALS Called : Yes Care By: DORIAN RAMIREZ Transferred To: Remains with Mother
== END 2018-08-25 15:55 | disposition home or self-care (01) | DRG 807 ==
LOC: OBT 09:37 → L-D 09:37 → OBT 09:50 → L-D 10:06 → PP1 22:11
PROVIDERS: ADMIT Obstetrics & Gynecology; ATTEND Obstetrics & Gynecology
PROC: 10E0XZZ Delivery of Products of Conception, External Approach (ICD-10-PCS; principal; 2018-08-23)
PROC: 0HQ9XZZ Repair Perineum Skin, External Approach (ICD-10-PCS; 2018-08-23)
DX: O70.0 First degree perineal laceration during delivery (principal); Z37.0 Single live birth; O69.81X0 Labor and delivery complicated by cord around neck, without compression, not applicable or unspecified; O99.214 Obesity complicating childbirth; E66.9 Obesity, unspecified; Z3A.37 37 weeks gestation of pregnancy
CPT/HCPCS: 62322; 85025; 85610; 85730; 86592; 86850; 86900; 86901; 87340; G0463; J2590; J3010; J7120; J7121